=== PATIENT | female | born 1995 | race Native Hawaiian/Other Pacific Islander ===

== ENCOUNTER 2019-01-09 15:01 | Emergency (ER) | payer OTHER, SELFPAY ==
[2019-01-09 15:07] VITALS: BP 127/102; PULSE 74; RESP 20; TEMP 37.1; O2SAT 99; BMI 43.7
--- NOTE | 2019-01-09 15:13 | DI.RAD.S_ITS ---
PROCEDURE: XR KNEE RT 1TO2V INDICATIONS: states dislocated TECHNIQUE: 2 views of the knee were acquired. COMPARISON: None. FINDINGS: Bones: Laterally placed the patella is seen concerning for lateral patellar dislocation. No gross fracture is seen. No suspicious bony lesions. Soft tissues: No joint effusion. No suspicious soft tissue calcifications. IMPRESSION: Findings concerning for lateral dislocation of the patella, suggest clinical correlation. No gross fracture is seen. Dictated by: Kristopher Nair M.D. on 01/09/2019 at 14:33 Approved by: Kristopher Nair M.D. on 01/09/2019 at 14:34
[2019-01-09] MEDS: HYDROCODONE/ACET 5/325 TABLET 1 TAB PO (16:32)
[2019-01-09] MEDS: ONDANSETRON 4 MG ODT SL (16:32)
--- NOTE | 2019-01-09 17:26 | ED.LOWEXIN ---
HPI - Extremity Injury (Lower) <ANNA Hubbard - Last Filed: 01/09/19 19:12> General Chief Complaint: Extremity Injury, Lower Stated Complaint: rt knee injury Time Seen by Provider: 01/09/19 15:07 Source: patient Mode of arrival: ambulatory Limitations: no limitations History of Present Illness HPI Narrative: The patient is a 23-year-old female nonsmoker with history of bilateral patellar dislocation. She presents for chief complaint of right knee pain after a near fall. She states her knee twisted, and that she felt her patella dislocate. She states that has since relocated. She did not fall or hurt anything else. She took some Motrin twice today. Her near fall happened earlier today. She states that she has had issues with patellar dislocating for the past several years, but has not followed up with anybody regarding this. She did ambulate into the emergency department independently. Related Data Home Medications Medication Instructions Recorded Confirmed ondansetron 4 mg TRANSLINGUAL PRN PRN 01/09/19 01/09/19 Previous Rx's Medication Instructions Recorded ketorolac 10 mg PO TID PRN #14 tab 01/09/19 Allergies Allergy/AdvReac Type Severity Reaction Status Date / Time No Known Drug Allergies Allergy Verified 01/09/19 16:32 Review of Systems <ANNA Hubbard - Last Filed: 01/09/19 19:12> Review of Systems GENERAL: Denies chills, fatigue, malaise, fever, sweats. HEENT: Denies sinus pain, ear pain, sore throat, difficulty swallowing, dizziness. RESPIRATORY: Denies dyspnea, cough, wheezing, hemoptysis, sputum. CARDIOVASCULAR: Denies chest pain, palpitations, orthopnea, edema, GASTROINTESTINAL: Denies nausea, vomiting, abdominal pain, diarrhea, constipation, melena. : Denies dysuria, frequency, incontinence, hematuria, urinary retention. MUSCULOSKELETAL: d see HPI SKIN: Denies rash, skin lesions, or other NEUROLOGIC: Denies weakness, headache, numbness, change in speech, confusion, seizures, incoordination. PSYCHIATRIC: No concerning psychosocial issues. 12 point review of systems is negative except for those stated above PFSH <ANNA Hubbard - Last Filed: 01/09/19 19:12> Social History Smoking Status: Former smoker Social History Smoking Status: Former smoker Exam <ANNA Hubbard - Last Filed: 01/09/19 19:12> Narrative Exam Narrative: GENERAL: This is a well-nourished, well-developed patient, lying on stretcher in no acute distress HEAD: Atraumatic. Normocephalic. No temporal or scalp tenderness. EYES: Pupils equal round and reactive. Extraocular motions intact. No scleral icterus. No injection or drainage. ENT: Nose without bleeding, purulent drainage or septal hematoma. Throat without erythema, tonsillar hypertrophy or exudate. Uvula midline. Airway patent. NECK: Trachea midline. No JVD or lymphadenopathy. Supple, nontender, no meningeal signs. CARDIOVASCULAR: Regular rate and rhythm RESPIRATORY: No cough. No increased respiratory effort. No accessory muscle use. EXTREMITIES: Bilateral pedal pulses intact. Patient is able to flex and extend right knee to 90?. Right patella stable to palpation. BACK: Nontender without deformity or crepitance. No flank tenderness. NEURO: AOx3. SKIN: No erythema ecchymosis rash her abrasion noted bilateral knees. Initial Vital Signs Initial Vital Signs: Vital Signs Temperature 98.8 F 01/09/19 15:07 Pulse Rate 74 01/09/19 15:07 Respiratory Rate 20 01/09/19 15:07 Blood Pressure 127/102 H 01/09/19 15:07 Pulse Oximetry 99 01/09/19 15:07 <Sanjana Reilly DO - Last Filed: 01/09/19 19:19> Initial Vital Signs Initial Vital Signs: Vital Signs Temperature 98.8 F 01/09/19 15:07 Pulse Rate 74 01/09/19 15:07 Respiratory Rate 20 01/09/19 15:07 Blood Pressure 127/102 H 01/09/19 15:07 Pulse Oximetry 99 01/09/19 15:07 Procedures <ANNA Hubbard - Last Filed: 01/09/19 19:12> Orthopedic Splinting/Casting Injury #1: Side: right Lower Extremity Immobilizer: knee immobilizer Other Orthopedic Equipment: crutches Post splinting neuro exam: intact Post splinting vascular exam: intact Placed by: Nursing Course <ANNA Hubbard - Last Filed: 01/09/19 19:12> Orders Ordered: ED Orders 01/09/19 15:13 XR knee RT 1to2V Stat Discontinued Medications Hydrocodone Bitart/Acetaminophen ([place] 5/325) 1 tab PO NOW ONE Stop: 01/09/19 16:23 Last Admin: 01/09/19 16:32 Dose: 1 tab Ondansetron HCl (Zofran Odt) 4 mg SL NOW ONE Stop: 01/09/19 16:23 Last Admin: 01/09/19 16:32 Dose: 4 mg Vital Signs - 8 hr 01/09/19 15:07 01/09/19 18:03 Temperature 98.8 F Pulse Rate 74 60 Respiratory Rate 20 Blood Pressure 127/102 H 124/75 Pulse Oximetry 99 99 <DO Marni Melara Last Filed: 01/09/19 19:19> Orders Ordered: ED Orders 01/09/19 15:13 XR knee RT 1to2V Stat Discontinued Medications Hydrocodone Bitart/Acetaminophen ([place] 5/325) 1 tab PO NOW ONE Stop: 01/09/19 16:23 Last Admin: 01/09/19 16:32 Dose: 1 tab Ondansetron HCl (Zofran Odt) 4 mg SL NOW ONE Stop: 01/09/19 16:23 Last Admin: 01/09/19 16:32 Dose: 4 mg Vital Signs - 8 hr 01/09/19 15:07 01/09/19 18:03 Temperature 98.8 F Pulse Rate 74 60 Respiratory Rate 20 Blood Pressure 127/102 H 124/75 Pulse Oximetry 99 99 MDM - Extremity Injury (Lower) <ANNA Hubbard - Last Filed: 01/09/19 19:12> Imaging Data Knee x-ray: Radiologist's impression: [address] [address] XRay Report Signed Patient: Brigitte DominguezQuyenR#: [id number] : 1995Acct:[id number] Age/Sex: 23 / FDate of Service: 01/09/19 Loc: ED Accession Number: [id number] Procedure: XR knee RT 1to2V Ordering Provider: Sanjana Lim PROCEDURE: XR KNEE RT 1TO2V INDICATIONS: states dislocated TECHNIQUE: 2 views of the knee were acquired. COMPARISON: None. FINDINGS: Bones: Laterally placed the patella is seen concerning for lateral patellar dislocation. No gross fracture is seen. No suspicious bony lesions. Soft tissues: No joint effusion. No suspicious soft tissue calcifications. IMPRESSION: Findings concerning for lateral dislocation of the patella, suggest clinical correlation. No gross fracture is seen. Dictated by: Kristopher Nair M.D. on 01/09/2019 at 14:33 Approved by: Kristopher Nair M.D. on 01/09/2019 at 14:34 [facility] Narrative Medical decision making narrative: The patient is a 23-year-old female who presents with a chief complaint of brief current patellar dislocation. Her x-ray is concerning for slight lateral dislocation. However the patient is able to flex and extend her knee, feels like her kneecap is in place is able to bear weight. She is placed in a knee immobilizer and given crutches. I discussed at length follow up with her PCP as well as [facility]. Discussed come back to the ER for any acute concerns. She was given Toradol prescription I discussed at length not complaining of any other NSAIDs such as Aleve or ibuprofen. Patient has no questions or concerns upon discharge. I did give her a note for decreased activity at work. Discussed rest ice compression elevation. No questions or concerns upon discharge. Discharge Plan Departure Patient Disposition: Home Clinical Impression: Recurrent dislocation of patella, left knee Acute knee pain Qualifiers: Laterality: right Qualified Code(s): M25.561 - Pain in right knee Discharge Date/Time: 01/09/19 18:04 Interventions: ED Discharge Assessment Last Done: 01/09/19 18:03 Instructions: How To Perform RICE (Rest, Ice, Compress, Elevate), DI for Knee Pain, DI for Patellar Dislocation Activity Restrictions/Additional Instructions: Please follow-up with [facility]. I have given you the contact information. Please also follow up with primary care provider. I have given you a prescription of Toradol. Do not combine this with any other anti-inflammatories. Come back to the emergency department for any acute concerns. Prescriptions: New ketorolac 10 mg tablet 10 mg PO TID PRN (Reason: pain) Qty: 14 RF: 0 No Action ondansetron 4 mg tablet,disintegrating 4 mg translingual PRN PRN (Reason: nausea/vertigo) RF: 0 Referrals: [facility] [Provider Group] Stand Alone Forms: Work Release Note <Sanjana Reilly DO - Last Filed: 01/09/19 19:19> Cosign ED Attending Cosignature Attestation: I was immediately available in the department for consultation. This documentation has been reviewed and I agree with assessment and plan. Supervised by Sanjana Reilly DO
[2019-01-09 18:03] VITALS: BP 124/75; PULSE 60; O2SAT 99
--- NOTE | 2019-01-09 19:07 | ED_ITS ---
HPI - Extremity Injury (Lower) <ANNA Hubbard - Last Filed: 01/09/19 19:12> General Chief Complaint: Extremity Injury, Lower Stated Complaint: rt knee injury Time Seen by Provider: 01/09/19 15:07 Source: patient Mode of arrival: ambulatory Limitations: no limitations History of Present Illness HPI Narrative: The patient is a 23-year-old female nonsmoker with history of bilateral patellar dislocation. She presents for chief complaint of right knee pain after a near fall. She states her knee twisted, and that she felt her patella dislocate. She states that has since relocated. She did not fall or hurt anything else. She took some Motrin twice today. Her near fall happened earlier today. She states that she has had issues with patellar dislocating for the past several years, but has not followed up with anybody regarding this. She did ambulate into the emergency department independently. Related Data Home Medications Medication Instructions Recorded Confirmed ondansetron 4 mg TRANSLINGUAL PRN PRN 01/09/19 01/09/19 Previous Rx's Medication Instructions Recorded ketorolac 10 mg PO TID PRN #14 tab 01/09/19 Allergies Allergy/AdvReac Type Severity Reaction Status Date / Time No Known Drug Allergies Allergy Verified 01/09/19 16:32 Review of Systems <ANNA Hubbard - Last Filed: 01/09/19 19:12> Review of Systems GENERAL: Denies chills, fatigue, malaise, fever, sweats. HEENT: Denies sinus pain, ear pain, sore throat, difficulty swallowing, dizziness. RESPIRATORY: Denies dyspnea, cough, wheezing, hemoptysis, sputum. CARDIOVASCULAR: Denies chest pain, palpitations, orthopnea, edema, GASTROINTESTINAL: Denies nausea, vomiting, abdominal pain, diarrhea, constipation, melena. : Denies dysuria, frequency, incontinence, hematuria, urinary retention. MUSCULOSKELETAL: d see HPI SKIN: Denies rash, skin lesions, or other NEUROLOGIC: Denies weakness, headache, numbness, change in speech, confusion, seizures, incoordination. PSYCHIATRIC: No concerning psychosocial issues. 12 point review of systems is negative except for those stated above PFSH <ANNA Hubbard - Last Filed: 01/09/19 19:12> Social History Smoking Status: Former smoker Social History Smoking Status: Former smoker Exam <ANNA Hubbard - Last Filed: 01/09/19 19:12> Narrative Exam Narrative: GENERAL: This is a well-nourished, well-developed patient, lying on stretcher in no acute distress HEAD: Atraumatic. Normocephalic. No temporal or scalp tenderness. EYES: Pupils equal round and reactive. Extraocular motions intact. No scleral icterus. No injection or drainage. ENT: Nose without bleeding, purulent drainage or septal hematoma. Throat without erythema, tonsillar hypertrophy or exudate. Uvula midline. Airway patent. NECK: Trachea midline. No JVD or lymphadenopathy. Supple, nontender, no meningeal signs. CARDIOVASCULAR: Regular rate and rhythm RESPIRATORY: No cough. No increased respiratory effort. No accessory muscle use. EXTREMITIES: Bilateral pedal pulses intact. Patient is able to flex and extend right knee to 90?. Right patella stable to palpation. BACK: Nontender without deformity or crepitance. No flank tenderness. NEURO: AOx3. SKIN: No erythema ecchymosis rash her abrasion noted bilateral knees. Initial Vital Signs Initial Vital Signs: Vital Signs Temperature 98.8 F 01/09/19 15:07 Pulse Rate 74 01/09/19 15:07 Respiratory Rate 20 01/09/19 15:07 Blood Pressure 127/102 H 01/09/19 15:07 Pulse Oximetry 99 01/09/19 15:07 <Sanjana Reilly DO - Last Filed: 01/09/19 19:19> Initial Vital Signs Initial Vital Signs: Vital Signs Temperature 98.8 F 01/09/19 15:07 Pulse Rate 74 01/09/19 15:07 Respiratory Rate 20 01/09/19 15:07 Blood Pressure 127/102 H 01/09/19 15:07 Pulse Oximetry 99 01/09/19 15:07 Procedures <ANNA Hubbard - Last Filed: 01/09/19 19:12> Orthopedic Splinting/Casting Injury #1: Side: right Lower Extremity Immobilizer: knee immobilizer Other Orthopedic Equipment: crutches Post splinting neuro exam: intact Post splinting vascular exam: intact Placed by: Nursing Course <ANNA Hubbard - Last Filed: 01/09/19 19:12> Orders Ordered: ED Orders 01/09/19 15:13 XR knee RT 1to2V Stat Discontinued Medications Hydrocodone Bitart/Acetaminophen ([place] 5/325) 1 tab PO NOW ONE Stop: 01/09/19 16:23 Last Admin: 01/09/19 16:32 Dose: 1 tab Ondansetron HCl (Zofran Odt) 4 mg SL NOW ONE Stop: 01/09/19 16:23 Last Admin: 01/09/19 16:32 Dose: 4 mg Vital Signs - 8 hr 01/09/19 15:07 01/09/19 18:03 Temperature 98.8 F Pulse Rate 74 60 Respiratory Rate 20 Blood Pressure 127/102 H 124/75 Pulse Oximetry 99 99 <DO Marni Melara Last Filed: 01/09/19 19:19> Orders Ordered: ED Orders 01/09/19 15:13 XR knee RT 1to2V Stat Discontinued Medications Hydrocodone Bitart/Acetaminophen ([place] 5/325) 1 tab PO NOW ONE Stop: 01/09/19 16:23 Last Admin: 01/09/19 16:32 Dose: 1 tab Ondansetron HCl (Zofran Odt) 4 mg SL NOW ONE Stop: 01/09/19 16:23 Last Admin: 01/09/19 16:32 Dose: 4 mg Vital Signs - 8 hr 01/09/19 15:07 01/09/19 18:03 Temperature 98.8 F Pulse Rate 74 60 Respiratory Rate 20 Blood Pressure 127/102 H 124/75 Pulse Oximetry 99 99 MDM - Extremity Injury (Lower) <ANNA Hubbard - Last Filed: 01/09/19 19:12> Imaging Data Knee x-ray: Radiologist's impression: [address] [address] XRay Report Signed Patient: Brigitte DominguezQuyenR#: [id number] : 1995Acct:[id number] Age/Sex: 23 / FDate of Service: 01/09/19 Loc: ED Accession Number: [id number] Procedure: XR knee RT 1to2V Ordering Provider: Sanjana Lim PROCEDURE: XR KNEE RT 1TO2V INDICATIONS: states dislocated TECHNIQUE: 2 views of the knee were acquired. COMPARISON: None. FINDINGS: Bones: Laterally placed the patella is seen concerning for lateral patellar dislocation. No gross fracture is seen. No suspicious bony lesions. Soft tissues: No joint effusion. No suspicious soft tissue calcifications. IMPRESSION: Findings concerning for lateral dislocation of the patella, suggest clinical correlation. No gross fracture is seen. Dictated by: Kristopher Nair M.D. on 01/09/2019 at 14:33 Approved by: Kristopher Nair M.D. on 01/09/2019 at 14:34 [facility] Narrative Medical decision making narrative: The patient is a 23-year-old female who presents with a chief complaint of brief current patellar dislocation. Her x- ray is concerning for slight lateral dislocation. However the patient is able to flex and extend her knee, feels like her kneecap is in place is able to bear weight. She is placed in a knee immobilizer and given crutches. I discussed at length follow up with her PCP as well as [facility]. Discussed come back to the ER for any acute concerns. She was given Toradol prescription I discussed at length not complaining of any other NSAIDs such as Aleve or ibuprofen. Patient has no questions or concerns upon discharge. I did give her a note for decreased activity at work. Discussed rest ice compression elevation. No questions or concerns upon discharge. Discharge Plan Departure Patient Disposition: Home Clinical Impression: Recurrent dislocation of patella, left knee Acute knee pain Qualifiers: Laterality: right Qualified Code(s): M25.561 - Pain in right knee Discharge Date/Time: 01/09/19 18:04 Interventions: ED Discharge Assessment Last Done: 01/09/19 18:03 Instructions: How To Perform RICE (Rest, Ice, Compress, Elevate), DI for Knee Pain, DI for Patellar Dislocation Activity Restrictions/Additional Instructions: Please follow-up with [facility]. I have given you the contact information. Please also follow up with primary care provider. I have given you a prescription of Toradol. Do not combine this with any other anti- inflammatories. Come back to the emergency department for any acute concerns. Prescriptions: New ketorolac 10 mg tablet 10 mg PO TID PRN (Reason: pain) Qty: 14 RF: 0 No Action ondansetron 4 mg tablet,disintegrating 4 mg translingual PRN PRN (Reason: nausea/vertigo) RF: 0 Referrals: [facility] [Provider Group] Stand Alone Forms: Work Release Note <Sanjana Reilly DO - Last Filed: 01/09/19 19:19> Cosign ED Attending Cosignature Attestation: I was immediately available in the department for consultation. This documentation has been reviewed and I agree with assessment and plan. Supervised by Sanjana Reilly DO
== END 2019-01-09 18:04 | disposition home or self-care (01) ==
PROVIDERS: Emergency Provider Nurse Practitioner Family
DX: M25.561 Pain in right knee (principal); X50.9XXA Other and unspecified overexertion or strenuous movements or postures, initial encounter
CPT/HCPCS: 29530; 73560; 99283

== ENCOUNTER 2019-03-18 11:43 | Emergency (ER) | payer OTHER, SELFPAY ==
[2019-03-18 11:56] VITALS: BP 140/85; PULSE 96; RESP 18; TEMP 36.2
[2019-03-18] MEDS: KETOROLAC 60 MG/2 ML VIAL IM (12:27)
[2019-03-18] MEDS: CYCLOBENZAPRINE 10 MG TABLET PO (12:27)
[2019-03-18] MEDS: LIDOCAINE PATCH 1 EACH ADH..PATCH TOP (12:28)
--- NOTE | 2019-03-18 12:31 | ED.BACK ---
HPI - Back Pain/Injury <STEFANO Hubbard-BC - Last Filed: 03/18/19 13:29> General Chief Complaint: Back Pain/Injury Stated Complaint: PULLED BACK HURTS Time Seen by Provider: 03/18/19 12:03 Source: patient Mode of arrival: Ambulatory Limitations: no limitations History of Present Illness HPI Narrative: The patient is a 24-year-old female nonsmoker presents with friends for chief complaint of back pain. She states she bent to pick something up on Sunday and felt her back ?lock up.Her pain is especially on her left side of her T-spine. She has been using Tylenol and Motrin appropriately since. She denies any neurological deficit. She denies any incontinence of bowel, incontinence of bladder saddle anesthesia. She denies any previous spinal cord injury. She did not fall and hit her spine. She believes she is having muscle spasm. Her pain is not radiating. She denies any urinary symptoms. Related Data Previous Rx's Medication Instructions Recorded cyclobenzaprine 10 mg PO TID PRN #20 tab 03/18/19 hydrocodone-acetaminophen [[place]] 1 tab PO Q4-6H PRN #7 tab 03/18/19 ketorolac 10 mg PO TID PRN #15 tab 03/18/19 Allergies Allergy/AdvReac Type Severity Reaction Status Date / Time cinnamon Allergy Severe Anaphylaxis Verified 03/18/19 12:00 latex Allergy Intermediate Hives Verified 03/18/19 12:00 Review of Systems <STEFANO Hubbard- - Last Filed: 03/18/19 13:29> Review of Systems Narrative: GENERAL: Denies chills, fatigue, malaise, fever, sweats. HEENT: Denies sinus pain, ear pain, sore throat, difficulty swallowing, dizziness. RESPIRATORY: Denies dyspnea, cough, wheezing, hemoptysis, sputum. CARDIOVASCULAR: Denies chest pain, palpitations, orthopnea, edema, GASTROINTESTINAL: Denies nausea, vomiting, abdominal pain, diarrhea, constipation, melena. : Denies dysuria, frequency, incontinence, hematuria, urinary retention. MUSCULOSKELETAL: See HPI SKIN: Denies rash, skin lesions, or other NEUROLOGIC: Denies weakness, headache, numbness, change in speech, confusion, seizures, incoordination. PSYCHIATRIC: No concerning psychosocial issues. 12 point review of systems is negative except for those stated above Patient History <STEFANO Hubbard-BC - Last Filed: 03/18/19 13:29> Social History Smoking Status: Former smoker Social History Smoking Status: Former smoker alcohol intake frequency: 0-2 drinks per day Substance Use Type: does not use Exam <STEFANO Hubbard-BC - Last Filed: 03/18/19 13:29> Narrative Exam Narrative: GENERAL: This is a well-nourished, well-developed patient, in no apparent distress HEAD: Atraumatic. Normocephalic. No temporal or scalp tenderness. EYES: Pupils equal round and reactive. Extraocular motions intact. No scleral icterus. No injection or drainage. ENT: Nose without bleeding, purulent drainage or septal hematoma. Throat without erythema, tonsillar hypertrophy or exudate. Uvula midline. Airway patent. NECK: Trachea midline. No JVD or lymphadenopathy. Supple, nontender, no meningeal signs. CARDIOVASCULAR: Regular rate and rhythm without murmurs, gallops, or rubs. RESPIRATORY: Clear to auscultation. Breath sounds equal bilaterally. No wheezes, rales, or rhonchi. No cough. No increased respiratory effort. No accessory muscle use. GASTROINTESTINAL: Abdomen soft, non-tender, nondistended. No hepato-splenomegaly, or palpable masses. No guarding. EXTREMITIES: No clubbing, cyanosis, or edema. No joint tenderness, effusion, or edema noted. BACK: No pain to cervical spine palpation. Diffuse pain to thoracic spine palpation. No pain to lumbar spine palpation. Pain to palpation of right paraspinal muscles throughout right side of spine. NEURO: AOx3. Stable gait. Strength is equal upper and lower extremities bilaterally. No gross cranial nerve deficit. Clear speech. SKIN: No rash or erythema visible skin Initial Vital Signs Initial Vital Signs: Vital Signs Temperature 97.1 F L 03/18/19 11:56 Pulse Rate 96 H 03/18/19 11:56 Respiratory Rate 18 03/18/19 11:56 Blood Pressure 140/85 03/18/19 11:56 <Andrew Chase DO - Last Filed: 03/18/19 18:18> Initial Vital Signs Initial Vital Signs: Vital Signs Temperature 97.1 F L 03/18/19 11:56 Pulse Rate 96 H 03/18/19 11:56 Respiratory Rate 18 03/18/19 11:56 Blood Pressure 140/85 03/18/19 11:56 Course <STEFANO Hubbard-BC - Last Filed: 03/18/19 13:29> Orders Ordered: Discontinued Medications Hydrocodone Bitart/Acetaminophen ([place] 5/325) 1 tab PO NOW ONE Stop: 03/18/19 13:03 Last Admin: 03/18/19 13:06 Dose: 1 tab Documented by: MARISOL Cyclobenzaprine HCl (Flexeril) 10 mg PO NOW ONE Stop: 03/18/19 12:13 Last Admin: 03/18/19 12:27 Dose: 10 mg Documented by: MARISOL Ketorolac Tromethamine (Toradol) 60 mg IM NOW ONE Stop: 03/18/19 12:13 Last Admin: 03/18/19 12:27 Dose: 60 mg Documented by: MARISOL Lidocaine (Lidoderm) 1 each TOP NOW ONE Stop: 03/18/19 12:13 Last Admin: 03/18/19 12:28 Dose: 1 each Documented by: MARISOL Vital Signs Vital signs: Vital Signs - 8 hr 03/18/19 11:56 03/18/19 13:29 Temperature 97.1 F L Pulse Rate 96 H 77 Respiratory Rate 18 16 Blood Pressure 140/85 130/72 Pulse Oximetry 97 <Andrew Chase DO - Last Filed: 03/18/19 18:18> Orders Ordered: Discontinued Medications Hydrocodone Bitart/Acetaminophen ([place] 5/325) 1 tab PO NOW ONE Stop: 03/18/19 13:03 Last Admin: 03/18/19 13:06 Dose: 1 tab Documented by: MARISOL Cyclobenzaprine HCl (Flexeril) 10 mg PO NOW ONE Stop: 03/18/19 12:13 Last Admin: 03/18/19 12:27 Dose: 10 mg Documented by: MARISOL Ketorolac Tromethamine (Toradol) 60 mg IM NOW ONE Stop: 03/18/19 12:13 Last Admin: 03/18/19 12:27 Dose: 60 mg Documented by: MARISOL Lidocaine (Lidoderm) 1 each TOP NOW ONE Stop: 03/18/19 12:13 Last Admin: 03/18/19 12:28 Dose: 1 each Documented by: CSIEDLE Vital Signs Vital signs: Vital Signs - 8 hr 03/18/19 11:56 03/18/19 13:29 Temperature 97.1 F L Pulse Rate 96 H 77 Respiratory Rate 18 16 Blood Pressure 140/85 130/72 Pulse Oximetry 97 MDM - Back Pain/Injury <Sanjana ReddySTEFANO faith-BC - Last Filed: 03/18/19 13:29> Lab Data Labs: Point of Care Testing Test Results Negative Urine Dip Bedside Urine Glucose Negative Bedside Urine Bilirubin - Negative Bedside Urine Ketone - Negative Urine Specific [place] 1.020 Bedside Urine Occult Blood - Negative Bedside Urine pH 6.0 Bedside Urine Protein - Negative Bedside Urine Urobilinogen - Negative Bedside Urine Nitrite - Negative Bedside Urine Leukocytes - Negative Esterase MDM Narrative Medical decision making narrative: The patient is a 24-year-old female who presents with a chief complaint of thoracic back pain since Sunday after bending over to pick something up. She denies any red flag symptoms of fever, incontinence of bowel, incontinence of bladder saddle anesthesia or history of cancer. She appears to have muscle spasm on exam. I discussed imaging, she elected to defer at this time she had no impact to her spine or falls etc. I treated her in the emergency department with Toradol, lidocaine patch, Flexeril as well as a [place]. I gave her prescriptions of Toradol Flexeril and [place] and encouraged at length follow up with primary care provider. Discussed come back to the emergency department for any acute concerns such as incontinence of bowel, incontinence of bladder or numbness in her groin. Patient has no questions or concerns upon discharge and states understanding of return precautions as well as follow-up care. <Andrew Chase DO - Last Filed: 03/18/19 18:18> Lab Data Labs: Point of Care Testing Test Results Negative Urine Dip Bedside Urine Glucose Negative Bedside Urine Bilirubin - Negative Bedside Urine Ketone - Negative Urine Specific [place] 1.020 Bedside Urine Occult Blood - Negative Bedside Urine pH 6.0 Bedside Urine Protein - Negative Bedside Urine Urobilinogen - Negative Bedside Urine Nitrite - Negative Bedside Urine Leukocytes - Negative Esterase Discharge Plan Departure Patient Disposition: Home Clinical Impression: Thoracic back pain Qualifiers: Chronicity: acute Back pain laterality: right Qualified Code(s): M54.6 - Pain in thoracic spine Discharge Date/Time: 03/18/19 13:36 Instructions: DI for Back Spasm, DI for Back Strain or Sprain, DI for Thoracic Back Pain Activity Restrictions/Additional Instructions: Please follow up with primary care provider in next few days. Please come back to emergency department for any acute concerns such as incontinence of bowel, incontinence of bladder numbness in your groin. I have given you a prescription of [place]. This can be constipating and sedating. I have given you a prescription for muscle relaxer, which also can be sedating. Do not combine the ketorolac with the other NSAIDs such as ibuprofen or Aleve. I have also given you a work note. Prescriptions: New cyclobenzaprine 10 mg tablet 10 mg PO TID PRN (Reason: muscle spasm) Qty: 20 RF: 0 hydrocodone-acetaminophen [[place]] 5-325 mg tablet 1 tab PO Q4-6H PRN (Reason: pain) Qty: 7 RF: 0 ketorolac 10 mg tablet 10 mg PO TID PRN (Reason: pain) Qty: 15 RF: 0 Stand Alone Forms: Work Release Note <Andrew Chase DO - Last Filed: 03/18/19 18:18> Sign Out Provider Sign Out Attestation: I was available for consultation during this patient's emergency department visit. This chart is signed by myself for administrative purposes only. I did not have direct contact with this patient during this visit. They were seen independently by the APC.
[2019-03-18] MEDS: HYDROCODONE/ACET 5/325 TABLET 1 TAB PO (13:06)
[2019-03-18 13:29] VITALS: BP 130/72; PULSE 77; RESP 16; O2SAT 97
== END 2019-03-18 13:36 | disposition home or self-care (01) ==
PROVIDERS: Emergency Provider Nurse Practitioner Family
DX: M54.6 Pain in thoracic spine (principal)
CPT/HCPCS: 81003; 81025; 96372; 99282; 99283; J1885

== ENCOUNTER 2019-08-14 19:47 | Emergency (ER) | payer OTHER, SELFPAY ==
[2019-08-14 19:53] VITALS: BP 147/75; PULSE 97; RESP 14; TEMP 35.9; O2SAT 100; BMI 43.4
--- NOTE | 2019-08-14 22:16 | ED_ITS ---
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 feeling. She presents for further evaluation. This was not associated with any acute neurologic symptoms and she denies fever, cough, cold, chills, nausea, vomiting, diarrhea, syncope Related Data Previous Rx's Medication Instructions Recorded cyclobenzaprine 10 mg PO TID PRN #20 tab 03/18/19 hydrocodone-acetaminophen [[place]] 1 tab PO Q4-6H PRN #7 tab 03/18/19 ketorolac 10 mg PO TID PRN #15 tab 03/18/19 Allergies Allergy/AdvReac Type Severity Reaction Status Date / Time cinnamon Allergy Severe Anaphylaxis Verified 08/14/19 19:53 latex Allergy Intermediate Hives Verified 08/14/19 19:53 Review of Systems Review of Systems Narrative: All systems reviewed and are unremarkable except as noted in HPI and below Patient History Social History Smoking Status: Current every day smoker Smoking Status: Current every day smoker tobacco type: vaping alcohol intake frequency: holidays/special occasions only Substance Use Type: does not use Exam Narrative Exam Narrative: General: Healthy appearing, in mild distress due to neck pain Able to give a complete and coherent history. Well-nourished well-developed HEENT: Moist mucous membranes, normal sclera with reactive pupils, Neck: Significant bilateral trapezius muscle spasm severe enough to preclude ability to rotate head. Tender bilaterally at occipital inputs with tenderness and spasm all the way down to the inferior portions of the trapezius muscles mid scapula. Respiratory: Lungs are clear to auscultation, no wheezing no rales no rhonchi. Full and symmetrical air movement Cardiac: Regular rate and rhythm no murmurs no bruits Abdomen: Soft nontender good bowel tones, no flank pain Skin: Warm and dry, no rashes Neurologic: Grossly neurologically intact with no obvious asymmetries or a bnormalities Extremities: No trauma, well perfused Psych: Cooperative, appropriate insight and affect Initial Vital Signs Initial Vital Signs: Vital Signs Temperature 96.6 F L 08/14/19 19:53 Pulse Rate 97 H 08/14/19 19:53 Respiratory Rate 14 08/14/19 19:53 Blood Pressure 147/75 H 08/14/19 19:53 Pulse Oximetry 100 08/14/19 19:53 Course Orders Ordered: Discontinued Medications Ibuprofen (Advil) 400 mg PO NOW ONE Stop: 08/14/19 23:06 Last Admin: 08/14/19 23:24 Dose: 400 mg Documented by: MYRON Oxycodone/Acetaminophen (Endocet 5/325 [place]) 1 bottle MISC SEEINSTR ONE Stop: 08/14/19 23:06 Last Admin: 08/14/19 23:24 Dose: 1 bottle Documented by: MYRON Vital Signs Vital signs: Vital Signs - 8 hr 08/14/19 19:53 08/14/19 22:37 08/14/19 23:26 Temperature 96.6 F L Pulse Rate 97 H 89 90 Respiratory Rate 14 17 17 Blood Pressure 147/75 H Blood Pressure [Left Arm] 132/78 134/68 Pulse Oximetry 100 97 96 MDM - Neck Pain/Injury Medical Records Attestation: I reviewed the patient's medical records. [facility] Narrative Medical decision making narrative: Presentation history and exam oral consistent with acute whiplash injury without significant cervical spine or cord damage. Questions are answered, she is safe for home discharge Discharge Plan Departure Patient Disposition: Home Clinical Impression: Whiplash injury to neck Qualifiers: Encounter type: initial encounter Qualified Code(s): S13.4XXA - Sprain of ligaments of cervical spine, initial encounter Discharge Date/Time: 08/14/19 23:50 Instructions: DI for Neck Pain Activity Restrictions/Additional Instructions: I am so sorry that you have her yourself catching the child why your work. You have an acute neck strain. It will get better however, it is going to get worse before you begin to heal. Using a soft collar to help support your neck will be helpful. Ice, heat and massage can also be helpful. Using 400 mg of ibuprofen (2 [id number] pills) and 1 Tylenol every 6 hours can be very helpful in controlling pain. For severe pain use 400 mg of ibuprofen and 1 Percocet rather than Tylenol. I would recommend that you do not return to work until SundayAugust 18. Allow your neck to heal as fully as possible before you began playing with the small ones again. I wish you the best Prescriptions: No Action cyclobenzaprine 10 mg tablet 10 mg PO TID PRN (Reason: muscle spasm) Qty: 20 RF: 0 hydrocodone-acetaminophen [[place]] 5-325 mg tablet 1 tab PO Q4-6H PRN (Reason: pain) Qty: 7 RF: 0 ketorolac 10 mg tablet 10 mg PO TID PRN (Reason: pain) Qty: 15 RF: 0 Stand Alone Forms: Work Release Note
[2019-08-14 22:37] VITALS: BP 132/78; PULSE 89; RESP 17; O2SAT 97
[2019-08-14] MEDS: OXYCODONE/APAP 5/325 PREPACK 1 BOTTLE MISC (23:24)
[2019-08-14] MEDS: IBUPROFEN 400 MG TABLET PO (23:24)
[2019-08-14 23:26] VITALS: BP 134/68; PULSE 90; RESP 17; O2SAT 96
== END 2019-08-14 23:50 | disposition home or self-care (01) ==
PROVIDERS: Emergency Provider Emergency Medicine
DX: S13.4XXA Sprain of ligaments of cervical spine, initial encounter (principal); Y99.0 Civilian activity done for income or pay
CPT/HCPCS: 99283